=== PATIENT | female | born 1950 | race Caucasian/White ===

== ENCOUNTER 2016-07-03 19:51 | Observation (INO) | payer BC ==
--- NOTE | ~2016-07-03 | HP ---
History And Physical [id number] [place]. [address] NAME: LULU SAMAYOA : 54 STATUS : DIS Faby PAT#: [id number] AGE: 65 ADM/REG DATE : 07/03/16 MR#: [id number] REPORT SERV DATE: 07/05/16 DICTATED BY: ADI CARMEN DATE: 07/04/16 REPORT STATUS : Draft TRANSCRIBED BY: MODL DATE: 07/04/16 DATE OF ADMISSION: 07/03/2016 REFERRING PHYSICIAN: Dr. Jason Enriquez. HISTORY OF PRESENT ILLNESS: Ms. Lulu Samayoa is a 65-year-old female with past medical history significant for hypertension and hyperlipidemia. She presented to the emergency room at [facility] complaining of subscapular chest pain which subsequently radiated to the left shoulder and chest. It was associated with shortness of breath and diaphoresis. She had no nausea. The pain was promptly relieved with a sublingual nitroglycerin in the emergency room. The patient has had a similar episode here earlier this morning with chest pain, shortness of breath, and diaphoresis. It also was promptly relieved with sublingual nitroglycerin. REVIEW OF SYSTEMS: The patient reports that over the last several months, she has felt increasingly weak. She reports that she has had more dyspnea on exertion. She denies any orthopnea, paroxysmal nocturnal dyspnea, syncope, or presyncope. The patient reports that she has had intermittent subscapular discomfort throughout this last weekend exacerbated by activity. FAMILY HISTORY: Extensive for premature coronary artery disease. SOCIAL HISTORY: The patient does not smoke. MEDICATIONS: See list. ALLERGIES: THE PATIENT HAS NO KNOWN DRUG ALLERGIES. PAST MEDICAL HISTORY: Significant for hypertension and hyperlipidemia. The patient is status post previous hysterectomy. PHYSICAL EXAMINATION: VITAL SIGNS: Blood pressure 145/79, respiratory rate 18, the patient is afebrile, and pulse 68. GENERAL: This is a well-developed, well-nourished, 65-year-old white female, alert and oriented x3, in no acute distress. NECK: No jugular venous distention, hepatojugular reflux, or carotid bruits. CARDIOVASCULAR: Normal rate with regular rhythm. No murmur, gallop, click, or rub. LUNGS: Clear to auscultation without wheezes, rales, or rhonchi. ABDOMEN: Soft, nontender, and nondistended. Positive bowel sounds. EXTREMITIES: Without clubbing, cyanosis, or edema. NEUROLOGIC EXAM: Grossly nonfocal. LABORATORY DATA: EKG is normal. Troponin x2 here is negative. History And Physical [address] [place]. [address] NAME: LULU SAMAYOA : 54 STATUS : DIS Faby PAT#: [id number] AGE: 65 ADM/REG DATE : 07/03/16 MR#: [id number] REPORT SERV DATE: 07/05/16 DICTATED BY: ADI CARMEN DATE: 07/04/16 REPORT STATUS : Draft TRANSCRIBED BY: ZIA DATE: 07/04/16 ASSESSMENT: 1. Acute coronary syndrome. 2. Hypertension. 3. Hyperlipidemia. 4. Extensive family history of premature coronary artery disease. PLAN: 1. See orders. 2. Proceed with left heart catheterization and possible PCI in this patient with a fairly classic history of acute coronary syndrome. Multiple risk factors for coronary artery disease as noted above. I have discussed the risks and benefits with the patient and her family including bleeding, bruising, hematoma, CVA, emergency bypass, stroke, and . She understands and wishes to proceed. /ZIA Adi Carmen M.D., [facility] / [id number] CC: Adi Carmen M.D., [facility] Jason Enriquez M.D.
--- NOTE | ~2016-07-03 | OP ---
Record Of Operation [facility] [address] [place]. [address] NAME: GEOVANI SAMAYOA : 54 STATUS : DIS Faby PAT#: [id number] AGE: 65 ADM/REG DATE : 07/03/16 MR#: [id number] REPORT SERV DATE: 07/05/16 DICTATED BY: ADI CARMEN DATE: 07/04/16 REPORT STATUS : Draft TRANSCRIBED BY: MODL DATE: 07/04/16 DATE OF PROCEDURE: 07/04/2016 CARDIAC CATHETERIZATION REPORT REFERRING PHYSICIAN: Dr. Jason Enriquez. INDICATION: Chest pain relieved by nitroglycerin with multiple risk factors for coronary artery disease. PROCEDURE: Left heart catheterization, coronary arteriography, and left ventriculography. DESCRIPTION OF PROCEDURE: After informed consent was obtained, the patient was taken in a fasting state to the cardiac catheterization laboratory, where she was prepped and draped in the sterile fashion. IV moderate sedation was obtained using intravenous Versed and fentanyl. The right inguinal region was anesthetized using 1% Xylocaine. The right femoral artery was then entered using a front wall approach and cannulated with 6-Jamaican arterial sheath. A 6-Jamaican JL4 diagnostic catheter was used to engage the left main coronary artery. A 6-Jamaican Avtar right catheter was used to engage the right coronary artery. A 6-Jamaican angled pigtail catheter was then used to cross the aortic valve at which time a left ventriculogram was performed. The catheter was then withdrawn back across the aortic valve with no significant aortic transvalvular gradient. Results of the study are as follows: HEMODYNAMICS: Aorta 101/57 with a mean pressure of 76 mmHg. Left ventricle 105/4 with end- diastolic pressure of 14 mmHg. CORONARY ANATOMY: 1. Left Main coronary artery: The left main coronary artery arises normally from the left coronary cusp. This vessel is free of visible disease. 2. Left anterior descending artery: The left anterior descending artery arises normally from the left main coronary artery. This vessel has minimal luminal irregularities of less than 20%. 3. Left circumflex artery: The left circumflex artery arises normally from the left main coronary artery. This vessel is nondominant. This vessel gives off a large first obtuse marginal branch which has proximal luminal irregularities of less than 20%. 4. Right coronary artery: The right coronary artery arises normally from the right coronary cusp. This vessel is dominant. This vessel has luminal irregularities in the proximal segment to 20%. There is also a discrete less than 20% midvessel stenosis. LEFT VENTRICULOGRAM: Left ventriculogram was performed which showed normal symmetric left ventricular contractility and an ejection fraction of 60%. There was no mitral insufficiency. COMPLICATIONS: There were no apparent complications. Record Of Operation [address] [place]. [address] NAME: GEOVANI SAMAYOA : 54 STATUS : DIS Faby PAT#: [id number] AGE: 65 ADM/REG DATE : 07/03/16 MR#: [id number] REPORT SERV DATE: 07/05/16 DICTATED BY: ADI CARMEN DATE: 07/04/16 REPORT STATUS : Draft TRANSCRIBED BY: ZIA DATE: 07/04/16 CONCLUSIONS: 1. Mild nonflow limiting coronary artery disease described above. 2. Normal left ventricular systolic function without mitral insufficiency. 3. No apparent complications. 4. Plans were made for continued medical management. Risk factor/lifestyle modification. Suspect gastroesophageal reflux disease with spasm. We will start on empiric trial of Protonix. /ZIA Adi Carmen M.D., [facility] / [id number] CC: Adi Carmen M.D., [facility] Jeanne Bingham M.D. Jason Enriquez M.D. Bernardo Roque
[~2016-07-03 19:51] MED LIST: CITRACAL PO; DIOVAN HC1 PO; EFFEX37.5 PO; FISH-EPA1000 MG PO; PRILO PO; ZOCOR40 PO
[2016-07-03 20:43] LABS: BASOPHILS 0.4 %; BASOPHILS ABSOLUTE 0.04 10/3/uL (0.0-0.16); EOSINOPHILS 2.4 %; EOSINOPHILS ABSOLUTE 0.23 10/3/uL (0.0-0.53); HEMOGLOBIN 14.2 g/dL (12.0-16.0); IMMATURE GRANULOCYTES 0.1 %; IMMATURE GRANULOCYTES ABSOLUTE 0.01 10/3/uL (0.0-0.11); LYMPHOCYTES ABSOLUTE 3.36 10/3/uL (0.67-4.30); MEAN CORPUS HGB CONC 33.8 g/dL (32.0-36.0); MEAN CORPUSCULAR HEMOGLOB 28.9 pg (26.0-34.0); MEAN CORPUSCULAR VOLUME 85.4 fL (80-100); MONOCYTES 4.2 %; NEUTROPHILS 57.9 %; NEUTROPHILS ABSOLUTE 5.56 10/3/uL (2.02-8.40); PLATELET COUNT 226 10/3/uL (150-400); RBC DISTRIBUTION WIDTH 13.8 % (12.0-16.0); RED CELL COUNT 4.92 10/6/uL (4.0-5.6); WHITE BLOOD CELLS 9.6 10/3/uL (4.5-10.5)
[2016-07-03 20:44] LABS: MANUAL DIFF NO %
[2016-07-03 20:51] LABS: PROTIME (NOT ORD) 12.8 SEC (12.0-14.5)
[2016-07-03 20:52] LABS: PARTIAL THROMBO TIME 85.4 SEC (22.5-37.2)
[2016-07-03] MEDS ORDERED: EFFEX37.5 PO (22:01)
[2016-07-03] MEDS ORDERED: CALTRA600D PO (22:01)
[2016-07-03] MEDS ORDERED: GENPRIL200 MG PO (22:01)
[2016-07-03] MEDS ORDERED: GLUCOSAMINEPO PO (22:02)
[2016-07-03] MEDS ORDERED: VITE PO (22:02)
[2016-07-03] MEDS ORDERED: VITAMIN B PO (22:02)
[2016-07-03] MEDS ORDERED: DIOVAN HC1 PO (22:03)
[2016-07-03] MEDS ORDERED: TURMERIC PO (22:03)
[2016-07-03] MEDS ORDERED: HYALURONIC ACID PO (22:03)
[2016-07-03] MEDS ORDERED: ZOCOR40 PO (22:04)
[2016-07-03] MEDS ORDERED: PRILO PO (22:04)
[2016-07-04 04:12] LABS: BUN (BLOOD UREA NITROGEN) 14 MG/DL (6-23); CALCIUM, SERUM 8.9 MG/DL (8.5-10.4); CHLORIDE, SERUM 107 MMOL/L (96-112); CK-MB 1.9 NG/ML; CO2 (CARBON DIOXIDE) 25 MMOL/L (24-34); CPK 79 U/L (0-200); CREATININE 0.61 MG/DL (0.55-1.02); GFR AFRICAN AMERICAN 112 ML/MIN (>=60); GFR NON AFRICAN AMERICAN 96 ML/MIN (>=60); GLUCOSE, SERUM 118 MG/DL (60-99); POTASSIUM, SERUM 3.5 MMOL/L (3.5-5.3); SODIUM, SERUM 142 MMOL/L (135-148); TROPONIN I <0.02 NG/ML (<0.05)
[2016-07-04 05:24] LABS: CHOL/HDL RATIO(NOT ORDER) 2.9 (0-5); CHOLESTEROL 199 MG/DL (< 200); HDL CHOLESTEROL 69 MG/DL (> 49); LDL CHOLESTEROL 106 MG/DL (< 130); NON-HDL CHOLESTEROL 130 MG/DL (< 160); TRIGLYCERIDE 123 MG/DL (< 150)
[2016-07-04 06:31] LABS: BASOPHILS 0.4 %; BASOPHILS ABSOLUTE 0.04 10/3/uL (0.0-0.16); EOSINOPHILS 3.2 %; EOSINOPHILS ABSOLUTE 0.29 10/3/uL (0.0-0.53); HEMATOCRIT 42.4 % (36.0-48.0); HEMOGLOBIN 14.4 g/dL (12.0-16.0); IMMATURE GRANULOCYTES 0.1 %; IMMATURE GRANULOCYTES ABSOLUTE 0.01 10/3/uL (0.0-0.11); LYMPHOCYTES 31.4 %; MEAN CORPUSCULAR HEMOGLOB 28.9 pg (26.0-34.0); MEAN CORPUSCULAR VOLUME 85.1 fL (80-100); MEAN PLATELET VOLUME 10.8 fL (9.2-13.0); MONOCYTES 5.9 %; MONOCYTES ABSOLUTE 0.53 10/3/uL (0.21-1.20); NEUTROPHILS ABSOLUTE 5.26 10/3/uL (2.02-8.40); PLATELET COUNT 219 10/3/uL (150-400); RBC DISTRIBUTION WIDTH 13.9 % (12.0-16.0); RED CELL COUNT 4.98 10/6/uL (4.0-5.6); WHITE BLOOD CELLS 8.9 10/3/uL (4.5-10.5)
[2016-07-04 06:32] LABS: MANUAL DIFF NO %
[2016-07-04 06:40] LABS: PROTIME (NOT ORD) 13.3 SEC (12.0-14.5)
[2016-07-04 06:51] LABS: PARTIAL THROMBO TIME 142.6 SEC (22.5-37.2)
[2016-07-04] MEDS ORDERED: PROTONIX PO (18:48)
[2016-07-04] MEDS ORDERED: LOP25 PO (18:48)
== END 2016-07-04 19:19 | disposition home or self-care (01) ==
LOC: 6NO 19:51
PROVIDERS: Internal Medicine Interventional Cardiology
DX: I25.10 Atherosclerotic heart disease of native coronary artery without angina pectoris (principal); I10 Essential (primary) hypertension; I24.9 Acute ischemic heart disease, unspecified; E78.5 Hyperlipidemia, unspecified; Z90.710 Acquired absence of both cervix and uterus; Z82.49 Family history of ischemic heart disease and other diseases of the circulatory system; Z79.52 Long term (current) use of systemic steroids; Z79.899 Other long term (current) drug therapy; Z98.51 Tubal ligation status; Z98.890 Other specified postprocedural states
CPT/HCPCS: 80048; 80061; 82550; 82553; 83735; 84484; 85025; 85347; 85610; 85730; 93005; 93458; 96374; 96376; 99152; A9270-GY; C1769; C1894; G0378; J2250; J3010; Q9967